=== PATIENT | male | born 1980 | race Two or more races ===

== ENCOUNTER 2017-03-28 21:47 | Emergency (ER) | payer MEDICAID ==
[~2017-03-28] VITALS: Ht 180.3 cm; Wt 90.0 kg
== END 2017-03-28 22:09 | disposition left against medical advice (07) ==
LOC: ED 22:03
DX: R45.851 Suicidal ideations (principal); Z53.21 Procedure and treatment not carried out due to patient leaving prior to being seen by health care provider